=== PATIENT | male | born 1960 | race Caucasian/White ===

== ENCOUNTER 2019-10-01 17:17 | Emergency (ER) | payer OTHER, SELFPAY ==
[2019-10-01 17:25] VITALS: BP 175/91; PULSE 75; RESP 12; TEMP 36.4; O2SAT 98
--- NOTE | 2019-10-01 17:27 | DI.CT.S_ITS ---
PROCEDURE: CT HEAD/BRAIN WO CON INDICATIONS: Dizziness w/ headache. No trauma. TECHNIQUE: Noncontrast 4.5 mm thick angled axial sections acquired from the foramen magnum to the vertex, with coronal and sagittal reformats. For radiation dose reduction, the following was used: automated exposure control, adjustment of mA and/or kV according to patient size. COMPARISON: [facility], CT, HEAD WITHOUT CONTRAST, 01/15/2013, 15:12. FINDINGS: Image quality: Excellent. CSF spaces: Basal cisterns are patent. No extra-axial fluid collections. Ventricles are normal in size and shape. Brain: No midline shift. No intracranial masses or hemorrhage. Kim-white matter interface is normal. Skull and face: Calvarium and visualized facial bones are intact, without suspicious lesions. Sinuses: Visualized sinuses and mastoids are clear. IMPRESSION: No acute intracranial abnormality demonstrated. Comment: Findings were discussed with Dr. Meri Chen at the time of dictation. Dictated by: David Lindsey M.D. on 10/01/2019 at 17:54 Approved by: David Lindsey M.D. on 10/01/2019 at 17:57
[2019-10-01 17:45] VITALS: BP 130/94; PULSE 85; RESP 17; O2SAT 98
[2019-10-01 17:59] LABS: Add Manual Diff / Slide Review NO; Basophils Absolute Auto 100 /uL (0-100); Basophils Percent Auto 0.6 % (0-2); Eosinophils Absolute Auto 100 /uL (0-450); Eosinophils Percent Auto 0.7 % (2-4); Hematocrit 46.5 % (41-53); Hemoglobin 15.9 g/dL (13.5-17.5); Lymphocytes Absolute Auto 2100 /uL (1100-4500); Lymphocytes Percent Auto 21.2 % (25-40); Mean Corpuscular HGB Conc 34.2 % (30-36); Mean Corpuscular Hemoglobin 30.6 PG (26-34); Mean Corpuscular Volume 89.7 fL (80-100); Monocytes Absolute Auto 700 /uL (0-900); Monocytes Percent Auto 6.7 % (3-14); Neutrophils Absolute Auto 7100 /uL (1500-7000); Neutrophils Percent Auto 70.8 % (50-75); Platelet Count 325 X10^3/uL (150-400); Red Blood Cell Count 5.18 X10^6/uL (4.5-5.9); Red Cell Distribution Width 12.8 % (11.6-14.8)
[2019-10-01 18:06] LABS: INR 1.1 (0.9-1.3); Prothrombin Time 12.5 SECONDS (10.1-12.7)
[2019-10-01 18:09] LABS: PTT Partial Thromboplastin Tim 34 SECONDS (26.4-36.2)
[2019-10-01 18:10] LABS: Alanine Aminotransferase 34 IU/L (<50); Albumin Globulin Ratio 1.6 (1.0-2.8); Alkaline Phosphatase 50 U/L (38-126); Aspartate Aminotransferase 28 IU/L (17-59); BUN Creatinine Ratio 22.5 (6-22); Bilirubin Total 0.5 mg/dL (0.2-1.3); Blood Urea Nitrogen 18 mg/dL (9-20); Carbon Dioxide 27 mmol/L (22-32); Chloride 105 mmol/L (98-107); Estimated Glomerular Filt Rate > 60.0 mL/min (>60); Ethanol (ETOH) < 10 mg/dL; Globulin 3.1 g/dL (1.7-4.1); Glucose 129 mg/dL (70-100); HEMOLYSIS 30 (0-50); Sodium 142 mmol/L (137-145); Total Protein 8.1 g/dL (6.3-8.2)
[2019-10-01 18:30] VITALS: BP 132/85; PULSE 71; RESP 18; O2SAT 95
--- NOTE | 2019-10-01 18:39 | ED.DIZZY ---
HPI - Dizziness <RIKA Ramos - Last Filed: 10/01/19 19:34> General Chief Complaint: Dizziness Stated Complaint: DIZZY PROBLEMS WITH HEAD Time Seen by Provider: 10/01/19 17:25 Source: patient and family Mode of arrival: Ambulatory Limitations: no limitations History of Present Illness HPI Narrative: The patient is a 59-year-old male nonsmoker who denies pertinent medical history presents from his primary care office for chief complaint of ?I've been dizzy. for a week with a headache and requesting a head CT. Initially the patient declines any further evaluation other than a head CT. He states that he has been feeling fuzzy for the past 5-7 days, with dizziness all the time and headache. He has seen his primary care provider multiple times. He denies any nausea, vomiting, photophobia or phonophobia. He has not taken anything for headache or dizziness. He denies any chest pain or shortness of breath. He states that he saw the primary care provider earlier today who did a neurological exam and sent him here for a head CT. This patient states that he had some slurred speech earlier, but that got better as well as word-finding difficulty but that improved. He states that prior to this previous week, it happened intermittently for the past several months. He denies any falls or trauma. Denies any blood thinners. Denies any focal weakness, numbness or tingling. Related Data Home Medications Medication Instructions Recorded Confirmed No Known Home Medications 10/01/19 10/01/19 Allergies Allergy/AdvReac Type Severity Reaction Status Date / Time No Known Drug Allergies Allergy Verified 10/01/19 17:27 Review of Systems <RIKA Ramos - Last Filed: 10/01/19 19:34> Review of Systems Narrative: GENERAL: Denies chills, fatigue, malaise, fever, sweats. HEENT: Denies sinus pain, ear pain, sore throat, difficulty swallowing, dizziness. RESPIRATORY: Denies dyspnea, cough, wheezing, hemoptysis, sputum. CARDIOVASCULAR: Denies chest pain, palpitations, orthopnea, edema, GASTROINTESTINAL: Denies nausea, vomiting, abdominal pain, diarrhea, constipation, melena. : Denies dysuria, frequency, incontinence, hematuria, urinary retention. MUSCULOSKELETAL: denies weakness, joint pain, or bony pain SKIN: Denies rash, skin lesions, or other NEUROLOGIC: See HPI PSYCHIATRIC: No concerning psychosocial issues. 12 point review of systems is negative except for those stated above Patient History <Ludivina BarrosRIKA mcgrath - Last Filed: 10/01/19 19:34> Social History Smoking Status: Never smoker Smoking Status: Never smoker alcohol intake frequency: 0-2 drinks per day Substance Use Type: does not use Exam <Ludivina BarrosRIKA mcgrath - Last Filed: 10/01/19 19:34> Narrative Exam Narrative: GENERAL: This is a well-nourished, well-developed patient, in mild distress. HEAD: Atraumatic. Normocephalic. No temporal or scalp tenderness. EYES: Pupils equal round and reactive. Extraocular motions intact. No scleral icterus. No injection or drainage. ENT: Nose without bleeding, purulent drainage or septal hematoma. Throat without erythema, tonsillar hypertrophy or exudate. Uvula midline. Airway patent. NECK: Trachea midline. No JVD or lymphadenopathy. Supple, nontender, no meningeal signs. CARDIOVASCULAR: Regular rate and rhythm RESPIRATORY: Clear to auscultation. Breath sounds equal bilaterally. No wheezes, rales, or rhonchi. No cough. No increased respiratory effort. No accessory muscle use. GASTROINTESTINAL: Abdomen soft, non-tender, nondistended. No hepato-splenomegaly, or palpable masses. No guarding. EXTREMITIES: No clubbing, cyanosis, or edema. No joint tenderness, effusion, or edema noted. BACK: Nontender without deformity or crepitance. No flank tenderness. NEURO: AOx3. Stable gait. Strength is equal upper and lower extremities bilaterally. No gross cranial nerve deficit-slight tongue deviation to left. Heel-bucio test intact. Finger nose test intact. SKIN: No rash or erythema on visible skin Initial Vital Signs Initial Vital Signs: Vital Signs Temperature 97.5 F L 10/01/19 17:25 Pulse Rate 75 10/01/19 17:25 Respiratory Rate 12 10/01/19 17:25 Blood Pressure 175/91 H 10/01/19 17:25 Pulse Oximetry 98 10/01/19 17:25 <Meri Chen DO - Last Filed: 10/02/19 09:32> Initial Vital Signs Initial Vital Signs: Vital Signs Temperature 97.5 F L 10/01/19 17:25 Pulse Rate 75 10/01/19 17:25 Respiratory Rate 12 10/01/19 17:25 Blood Pressure 175/91 H 10/01/19 17:25 Pulse Oximetry 98 10/01/19 17:25 Scores <BALDEMAR RamosBC - Last Filed: 10/01/19 19:34> GCS Scarlet coma scale eye opening: Spontaneous Scarlet coma scale verbal response: Orientated [place] coma scale motor response: Obey commands Scarlet coma scale total score: 15 NIH Stroke Scale Level of Conciousness: Alert, keenly responsive Ask month/age: Answers both questions correctly. Open/close eyes, close hand: Performs both tasks correctly Best gaze horizontal: Normal Visual denny: No visual loss Facial palsy: Normal symetrical movement Left arm drift: No drift for full 10 sec Right arm drift: No drift for full 10 sec Left leg drift: No drift for full 10 sec Right leg drift: No drift for full 10 sec Limb ataxia: Absent Sensory on face/arms/legs: Normal, no sensory loss Best language: Mild to moderate, slurs some words Dysarthria: Normal Extinction or inattention: No abnormality Total NIH Stroke scale score: 1 Course <RIKA Ramos - Last Filed: 10/01/19 19:34> Orders Ordered: Discontinued Medications Aspirin (Aspirin Chew) 324 mg PO NOW ONE Stop: 10/01/19 18:44 Last Admin: 10/01/19 18:47 Dose: 324 mg Documented by: BARBARA Sodium Chloride (Normal Saline 0.9%) 1,000 mls @ 150 mls/hr IV CONT ADOLFO Last Admin: 10/01/19 18:04 Dose: Not Given Documented by: BARBARA Vital Signs Vital signs: Vital Signs - 8 hr 10/01/19 17:25 10/01/19 17:45 10/01/19 18:30 Temperature 97.5 F L Pulse Rate 75 85 71 Respiratory Rate 12 17 18 Blood Pressure 175/91 H Blood Pressure [Left Arm] 130/94 H 132/85 Pulse Oximetry 98 98 95 <DO Rukhsana Weeks Last Filed: 10/02/19 09:32> Orders Ordered: Discontinued Medications Aspirin (Aspirin Chew) 324 mg PO NOW ONE Stop: 10/01/19 18:44 Last Admin: 10/01/19 18:47 Dose: 324 mg Documented by: BARBARA Sodium Chloride (Normal Saline 0.9%) 1,000 mls @ 150 mls/hr IV CONT ADOLFO Last Admin: 10/01/19 18:04 Dose: Not Given Documented by: BARBARA Vital Signs Vital signs: Vital Signs - 8 hr 10/01/19 17:25 10/01/19 17:45 10/01/19 18:30 Temperature 97.5 F L Pulse Rate 75 85 71 Respiratory Rate 12 17 18 Blood Pressure 175/91 H Blood Pressure [Left Arm] 130/94 H 132/85 Pulse Oximetry 98 98 95 MDM - Dizziness <JULES Ramos- - Last Filed: 10/01/19 19:34> Lab Data Result diagrams: 10/01/19 17:53 10/01/19 17:53 Labs: Lab Results 10/01/19 10/01/19 10/01/19 Range/Units 17:53 17:53 17:53 WBC 10.0 (4.5-11.0) X10^3/uL RBC 5.18 (4.5-5.9) X10^6/uL Hgb 15.9 (13.5-17.5) g/dL Hct 46.5 (41-53) % MCV 89.7 (80-100) fL MCH 30.6 (26-34) PG MCHC 34.2 (30-36) % RDW 12.8 (11.6-14.8) % Plt Count 325 (150-400) X10^3/uL Neut % (Auto) 70.8 (50-75) % Lymph % (Auto) 21.2 L (25-40) % [place] % (Auto) 6.7 (3-14) % Eos % (Auto) 0.7 L (2-4) % Baso % (Auto) 0.6 (0-2) % Neut # (Auto) 7100 H (0029-8457) /uL Lymph # (Auto) 2100 (9623-9751) /uL [place] # (Auto) 700 (0-900) /uL Eos # (Auto) 100 (0-450) /uL Baso # (Auto) 100 (0-100) /uL PT 12.5 (10.1-12.7) SECONDS INR 1.1 (0.9-1.3) APTT 34 (26.4-36.2) SECONDS Sodium 142 (137-145) mmol/L Potassium 4.0 (3.4-5.1) mmol/L Chloride 105 (98-107) mmol/L Carbon Dioxide 27 (22-32) mmol/L BUN 18 (9-20) mg/dL Creatinine 0.80 (0.66-1.25) mg/dL Estimated GFR > 60.0 (>60) mL/min BUN/Creatinine Ratio 22.5 H (6-22) Glucose 129 H (70-100) mg/dL Calcium 10.0 (8.4-10.2) mg/dL Total Bilirubin 0.5 (0.2-1.3) mg/dL AST 28 (17-59) IU/L ALT 34 (<50) IU/L Alkaline Phosphatase 50 (38-126) U/L Total Protein 8.1 (6.3-8.2) g/dL Albumin 5.0 (3.5-5.0) g/dL Globulin 3.1 (1.7-4.1) g/dL Albumin/Globulin Ratio 1.6 (1.0-2.8) Ethyl Alcohol < 10 ( - 10) mg/dL Imaging Data CT scan - head: Radiologist's Impression: [address] [place] [address] CT Scan Report Signed Patient: Eric Davila RMR#: [id number] : 2Acct:[id number] Age/Sex: 59 / MDate of Service: 10/01/19 Loc: ED Accession Number: [id number] Procedure: CT head/brain wo con Ordering Provider: Ludivina Hill [facility] PROCEDURE: CT HEAD/BRAIN WO CON INDICATIONS: Dizziness w/ headache. No trauma. TECHNIQUE: Noncontrast 4.5 mm thick angled axial sections acquired from the foramen magnum to the vertex, with coronal and sagittal reformats. For radiation dose reduction, the following was used: automated exposure control, adjustment of mA and/or kV according to patient size. COMPARISON: [facility], CT, HEAD WITHOUT CONTRAST, 01/15/2013, 15:12. FINDINGS: Image quality: Excellent. CSF spaces: Basal cisterns are patent. No extra-axial fluid collections. Ventricles are normal in size and shape. Brain: No midline shift. No intracranial masses or hemorrhage. Kim-white matter interface is normal. Skull and face: Calvarium and visualized facial bones are intact, without suspicious lesions. Sinuses: Visualized sinuses and mastoids are clear. IMPRESSION: No acute intracranial abnormality demonstrated. Comment: Findings were discussed with Dr. Meri Chen at the time of dictation. Dictated by: David Lindsey M.D. on 10/01/2019 at 17:54 Approved by: David Lindsey M.D. on 10/01/2019 at 17:57 ECG Data Attestation: I personally reviewed and interpreted this ECG as follows: Interpretation: Sinus rhythm. Ventricular rate 65. P.r. 166. QRS duration 105. Viewed by Dr. Chen MDM Narrative Medical decision making narrative: The patient is a 59-year-old female who presents with a chief complaint of neurological concerns and concern for stroke by his primary care provider. The patient initially declined any further evaluation other than his head CT, though did consent to lab work. No acute findings on his head CT. No acute findings on his lab work. However his exam is concerning, especially given his history. I discussed at length further possible imaging, CT a, possible MRI, admission but the patient would rather follow up with primary care provider. He declines any further workup at this point time. He declines admission to the hospital. States he would rather go home tonight follow-up with primary care provider in the morning. He initially declined aspirin, but later consented. I discussed with patient that he is taking a risk by leaving the hospital and he is okay with that. This conversation was held in front of Renetta Vega RN. Discussed at length that he is able to come back to emergency department for any acute concerns at any time. Patient has no questions or concerns upon discharge and states understanding of return precautions as well as follow-up care. The patient is GCS 15 and capable of making decisions throughout his stay in the emergency department. <Meri Chen, DO - Last Filed: 10/02/19 09:32> Lab Data Labs: Lab Results 10/01/19 10/01/19 10/01/19 Range/Units 17:53 17:53 17:53 WBC 10.0 (4.5-11.0) X10^3/uL RBC 5.18 (4.5-5.9) X10^6/uL Hgb 15.9 (13.5-17.5) g/dL Hct 46.5 (41-53) % MCV 89.7 (80-100) fL MCH 30.6 (26-34) PG MCHC 34.2 (30-36) % RDW 12.8 (11.6-14.8) % Plt Count 325 (150-400) X10^3/uL Neut % (Auto) 70.8 (50-75) % Lymph % (Auto) 21.2 L (25-40) % [place] % (Auto) 6.7 (3-14) % Eos % (Auto) 0.7 L (2-4) % Baso % (Auto) 0.6 (0-2) % Neut # (Auto) 7100 H (1672-7140) /uL Lymph # (Auto) 2100 (8440-5453) /uL [place] # (Auto) 700 (0-900) /uL Eos # (Auto) 100 (0-450) /uL Baso # (Auto) 100 (0-100) /uL PT 12.5 (10.1-12.7) SECONDS INR 1.1 (0.9-1.3) APTT 34 (26.4-36.2) SECONDS Sodium 142 (137-145) mmol/L Potassium 4.0 (3.4-5.1) mmol/L Chloride 105 (98-107) mmol/L Carbon Dioxide 27 (22-32) mmol/L BUN 18 (9-20) mg/dL Creatinine 0.80 (0.66-1.25) mg/dL Estimated GFR > 60.0 (>60) mL/min BUN/Creatinine Ratio 22.5 H (6-22) Glucose 129 H (70-100) mg/dL Calcium 10.0 (8.4-10.2) mg/dL Total Bilirubin 0.5 (0.2-1.3) mg/dL AST 28 (17-59) IU/L ALT 34 (<50) IU/L Alkaline Phosphatase 50 (38-126) U/L Total Protein 8.1 (6.3-8.2) g/dL Albumin 5.0 (3.5-5.0) g/dL Globulin 3.1 (1.7-4.1) g/dL Albumin/Globulin Ratio 1.6 (1.0-2.8) Ethyl Alcohol < 10 ( - 10) mg/dL ECG Data Attestation: I personally reviewed and interpreted this ECG as follows: Prior ECG tracings: available for review Interpretation: Normal sinus rhythm rate 65 p.r. interval 166 QRS [address] elevation or or depression T-wave inversion noted in lead 3 only similar to previous EKG in 2013 no changes Discharge Plan Departure Patient Disposition: Home Clinical Impression: Dizziness Headache Qualifiers: Headache type: unspecified Headache chronicity pattern: unspecified pattern Intractability: not intractable Qualified Code(s): R51 - Headache Discharge Date/Time: 10/01/19 18:54 Instructions: DI for Headache, DI for Dizziness-Nonvertigo Activity Restrictions/Additional Instructions: Your head CT shows no acute intracranial abnormalities. Your lab work is grossly normal. I suggest taking an aspirin a day As discussed, you have elected to defer any further evaluation and workup to your primary care provider rather than proceed with any in the emergency department tonight. Please call your primary care provider in the morning. We discussed that you have understanding of increased risk related to deferring further workup and evaluation and have elected to accept this risk. Please come back to the emergency department for any acute concerns. Prescriptions: No Action No Known Home Medications RF: 0 Referrals: Rahat Desai [Non-Staff] -
[2019-10-01] MEDS: ASPIRIN 81 MG CHEW TAB 324 MG PO (18:47)
== END 2019-10-01 18:54 | disposition home or self-care (01) ==
PROVIDERS: Emergency Provider Nurse Practitioner Family
DX: R42 Dizziness and giddiness (principal); R51 Headache
CPT/HCPCS: 36415; 70450; 80053; 80320; 85025; 85610; 85730; 93005; 99284; 99285